=== PATIENT | female | born 1935 | race Caucasian/White ===

== ENCOUNTER 2017-12-31 19:49 | Inpatient (IN) | payer MEDICARE ==
[~2017-12-31] VITALS: Ht 147.3 cm; Wt 43.5 kg
[2017-12-31 20:05] VITALS: BP 159/70
[2017-12-31] MEDS ORDERED: VENTOLIN 02.5 MG/3 M INH (20:08)
[2017-12-31] MEDS ORDERED: LIPITOR20 MG PO (20:08)
[2017-12-31] MEDS ORDERED: COREG25 MG PO (20:08)
[2017-12-31] MEDS ORDERED: COLACE100 MG PO (20:09)
[2017-12-31] MEDS ORDERED: HYDR25T PO (20:09)
[2017-12-31] MEDS ORDERED: MULTIVITAMINS1 EAC5 PO (20:09)
[2017-12-31] MEDS ORDERED: COZAAR50 M1 PO (20:09)
[2017-12-31] MEDS ORDERED: VITAMIN D31000 UNI1 PO (20:10)
[2017-12-31] MEDS ORDERED: ASPIRIN CHEWABL81 MG PO (20:10)
[2017-12-31] MEDS ORDERED: CALCIUM500 M1 PO (20:10)
[2017-12-31] MEDS ORDERED: PROBIOTIC1 EAC4 PO (20:10)
[2017-12-31] MEDS ORDERED: MELATONIN10 M4 PO (20:11)
[2017-12-31 20:52] LABS: BASO % 0.1 % (0.0-1.0); EOS % 0.3 % (1.0-4.0); HEMATOCRIT 29.5 % (37.0-47.0); HEMOGLOBIN 10.6 g/dl (12.0-16.0); LYMPH # 0.8 10*3/uL (1.3-4.4); LYMPH % 11.2 % (27.0-41.0); MEAN CELL VOLUME 90.8 fl (81.0-99.0); MEAN CORPUSCULAR HGB 32.6 pg (27.0-31.0); MEAN CORPUSCULAR HGB CONC 35.9 g/dl (33.0-37.0); MEAN PLATELET VOLUME 8.4 fl (9.6-12.3); MONO # 0.9 10*3/uL (0.1-1.0); MONO % 12.2 % (3.0-9.0); NEUT # 5.5 10*3/uL (2.3-7.9); NEUT % 75.7 % (47.0-73.0); PLATELET COUNT AUTOMATED 461 10*3/uL (130-400); RED BLOOD COUNT 3.25 10*6/uL (4.10-5.10); WHITE BLOOD COUNT 7.3 10*3/uL (4.8-10.8)
[2017-12-31 21:08] LABS: ALBUMIN 2.2 gm/dl (3.1-4.5); ALKALINE PHOSPHATASE 62 U/L (45-117); BUN 21 mg/dl (7-24); CHLORIDE 80 mmol/L (98-107); CREATININE 0.57 mg/dL (0.55-1.02); PHOSPHOROUS 2.3 mg/dL (2.5-4.9); POTASSIUM 3.5 mmol/L (3.5-5.1); SGOT/AST 20 IU/L (3-35); SGPT/ALT 37 U/L (12-78); SODIUM 121 mmol/L (136-145); TOTAL PROTEIN 5.9 gm/dL (6.4-8.2)
[2017-12-31 21:12] LABS: TROPONIN I < 0.015 ng/ml (<0.045)
[2017-12-31 22:29] VITALS: BP 171/69
[2018-01-01 00:39] LABS: ABG BASE EXCESS 7.1 mmol/L (-2.0-2.0); ABG HCO3 31.7 mmol/l (22-26); ABG O2 SATURATION 97.5 % (95-97); ARTERIAL BLOOD GAS PCO2 46.8 mmHg (35-45); ARTERIAL BLOOD GAS PH 7.445 (7.35-7.45); ARTERIAL BLOOD GAS PO2 85.2 mmHg (80-90)
[2018-01-01 00:45] VITALS: BP 190/76
[2018-01-01 03:27] LABS: BILIRUBIN NEGATIVE (NEGATIVE); BLOOD NEGATIVE (NEGATIVE); CLARITY CLEAR (CLEAR); COLOR YELLOW (YELLOW); GLUCOSE NEGATIVE (NEGATIVE); KETONE NEGATIVE (NEGATIVE); LEUKO ESTERASE NEGATIVE (NEGATIVE); NITRITE NEGATIVE (NEGATIVE); UROBILINOGEN 0.2 E.U./dl (0.2-1.0)
[2018-01-01 03:34] LABS: BACTERIA TRACE
[2018-01-01 04:38] VITALS: BP 137/61
[2018-01-01 07:13] LABS: BASO % 0.1 % (0.0-1.0); EOS % 0.3 % (1.0-4.0); HEMATOCRIT 29.4 % (37.0-47.0); HEMOGLOBIN 10.4 g/dl (12.0-16.0); LYMPH % 11.2 % (27.0-41.0); MEAN CORPUSCULAR HGB 32.2 pg (27.0-31.0); MEAN CORPUSCULAR HGB CONC 35.4 g/dl (33.0-37.0); MEAN PLATELET VOLUME 8.5 fl (9.6-12.3); MONO # 0.9 10*3/uL (0.1-1.0); MONO % 10.1 % (3.0-9.0); NEUT # 6.7 10*3/uL (2.3-7.9); NEUT % 77.6 % (47.0-73.0); PLATELET COUNT AUTOMATED 465 10*3/uL (130-400); RED BLOOD COUNT 3.23 10*6/uL (4.10-5.10); WHITE BLOOD COUNT 8.7 10*3/uL (4.8-10.8)
[2018-01-01 07:21] LABS: BUN 15 mg/dl (7-24); CHLORIDE 87 mmol/L (98-107); CHOLESTEROL 118 mg/dL (<200); CREATININE 0.34 mg/dL (0.55-1.02); HDL CHOLESTEROL 74 mg/dl (40-60); LDL CHOLESTEROL 37 mg/dL (9-159); PHOSPHOROUS 1.6 mg/dL (2.5-4.9); SODIUM 125 mmol/L (136-145); TRIGLYCERIDES 36 mg/dl (<150); VLDL CHOLESTEROL 7 mg/dL (6-40)
[2018-01-01 08:00] VITALS: BP 120/40
[2018-01-01 08:07] LABS: VITAMIN D, 25-HYDROXY 34.6 ng/mL (30-100)
[2018-01-01] MEDS ORDERED: PREDNISONE10 MG PO (09:52)
[2018-01-01 12:00] VITALS: BP 145/48
[2018-01-01 16:00] VITALS: BP 120/75; BP 128/82
[2018-01-01 20:00] VITALS: BP 160/74
[2018-01-02] VITALS: BP 153/63
[2018-01-02 05:56] LABS: BASO % 0.1 % (0.0-1.0); HEMOGLOBIN 10.3 g/dl (12.0-16.0); LYMPH # 0.6 10*3/uL (1.3-4.4); LYMPH % 8.9 % (27.0-41.0); MEAN CELL VOLUME 93.2 fl (81.0-99.0); MEAN CORPUSCULAR HGB CONC 34.3 g/dl (33.0-37.0); MEAN PLATELET VOLUME 8.4 fl (9.6-12.3); MONO # 0.2 10*3/uL (0.1-1.0); NEUT # 6.2 10*3/uL (2.3-7.9); NEUT % 87.2 % (47.0-73.0); PLATELET COUNT AUTOMATED 526 10*3/uL (130-400); RED BLOOD COUNT 3.22 10*6/uL (4.10-5.10); RED CELL DISTRI WIDTH 14.6 % (0-14.5); WHITE BLOOD COUNT 7.1 10*3/uL (4.8-10.8)
[2018-01-02 06:25] LABS: ALBUMIN 2.1 gm/dl (3.1-4.5); ALKALINE PHOSPHATASE 52 U/L (45-117); BUN 11 mg/dl (7-24); CHLORIDE 96 mmol/L (98-107); CREATININE 0.52 mg/dL (0.55-1.02); PHOSPHOROUS 2.2 mg/dL (2.5-4.9); POTASSIUM 3.8 mmol/L (3.5-5.1); SGOT/AST 16 IU/L (3-35); SGPT/ALT 33 U/L (12-78); SODIUM 132 mmol/L (136-145); TOTAL PROTEIN 5.7 gm/dL (6.4-8.2)
[2018-01-02 08:00] VITALS: BP 178/85
[2018-01-02 12:00] VITALS: BP 138/85
[2018-01-02 16:00] VITALS: BP 162/60
[2018-01-02 20:00] VITALS: BP 142/73
[2018-01-02 23:55] VITALS: BP 175/70
[2018-01-03 07:25] LABS: BASO % 0.1 % (0.0-1.0); HEMATOCRIT 29.5 % (37.0-47.0); HEMOGLOBIN 10.1 g/dl (12.0-16.0); LYMPH # 0.9 10*3/uL (1.3-4.4); LYMPH % 10.5 % (27.0-41.0); MEAN CELL VOLUME 93.7 fl (81.0-99.0); MEAN CORPUSCULAR HGB 32.1 pg (27.0-31.0); MEAN CORPUSCULAR HGB CONC 34.2 g/dl (33.0-37.0); MEAN PLATELET VOLUME 8.3 fl (9.6-12.3); MONO # 0.4 10*3/uL (0.1-1.0); MONO % 4.5 % (3.0-9.0); NEUT # 7.1 10*3/uL (2.3-7.9); PLATELET COUNT AUTOMATED 549 10*3/uL (130-400); RED BLOOD COUNT 3.15 10*6/uL (4.10-5.10); RED CELL DISTRI WIDTH 14.7 % (0-14.5); WHITE BLOOD COUNT 8.5 10*3/uL (4.8-10.8)
[2018-01-03 07:51] LABS: BUN 13 mg/dl (7-24); CHLORIDE 94 mmol/L (98-107); CREATININE 0.52 mg/dL (0.55-1.02); PHOSPHOROUS 1.8 mg/dL (2.5-4.9); POTASSIUM 3.6 mmol/L (3.5-5.1); SODIUM 132 mmol/L (136-145)
[2018-01-03 08:00] VITALS: BP 188/56
[2018-01-03] MEDS ORDERED: LOSARTAN POTASS50 M1 PO (11:26)
[2018-01-03] MEDS ORDERED: PREDNISONE10 MG PO (11:26)
[2018-01-03] MEDS ORDERED: AZITHROMYCIN500 M2 PO (11:26)
[2018-01-03 12:00] VITALS: BP 146/45
[2018-01-03] MEDS ORDERED: COZAAR100 MG PO (13:08)
== END 2018-01-03 13:43 | disposition other institution (70) | DRG 951 ==
LOC: ED 19:49 → 4E 21:57 → EDHOLD 21:57 → 4E 22:43
PROVIDERS: Family Medicine; Internal Medicine; Student in an Organized Health Care Education/Training Program
DX: Z68.20 Body mass index [BMI] 20.0-20.9, adult (principal); R65.20 Severe sepsis without septic shock; E43 Unspecified severe protein-calorie malnutrition; A41.9 Sepsis, unspecified organism; J18.9 Pneumonia, unspecified organism; G93.41 Metabolic encephalopathy; J44.0 Chronic obstructive pulmonary disease with (acute) lower respiratory infection; J44.1 Chronic obstructive pulmonary disease with (acute) exacerbation; E87.1 Hypo-osmolality and hyponatremia; I16.1 Hypertensive emergency; E11.9 Type 2 diabetes mellitus without complications; D64.9 Anemia, unspecified; E87.8 Other disorders of electrolyte and fluid balance, not elsewhere classified; D47.3 Essential (hemorrhagic) thrombocythemia; I25.10 Atherosclerotic heart disease of native coronary artery without angina pectoris; E83.41 Hypermagnesemia; E83.39 Other disorders of phosphorus metabolism; I10 Essential (primary) hypertension; E78.5 Hyperlipidemia, unspecified; Z90.49 Acquired absence of other specified parts of digestive tract; Z98.61 Coronary angioplasty status; Z91.040 Latex allergy status; Z91.048 Other nonmedicinal substance allergy status; Z79.899 Other long term (current) drug therapy; Z79.82 Long term (current) use of aspirin